=== PATIENT | male | born 1935 | race Caucasian/White ===

== ENCOUNTER 2023-05-09 16:07 | Observation (INO) | payer MEDICARE ==
[2023-05-09 20:40] VITALS: BMI 28.7
[2023-05-09] MEDS ORDERED: Ondansetron ODT 4 MG TAB PO PRN (23:35)
[2023-05-09] MEDS ORDERED: Acetaminophen 325 MG TAB PO PRN (23:35)
[2023-05-09] MEDS ORDERED: Ondansetron PF 4 MG/2 ML Vial IVP PRN (23:35)
[2023-05-09] MEDS ORDERED: ALPRAZolam 0.5 MG TAB PO ONE (23:37)
[2023-05-09] MEDS ORDERED: ALPRAZolam 0.25 MG TAB PO PRN (23:43)
[2023-05-09] MEDS ORDERED: Aspirin 325 MG TAB PO SCH (23:45)
[2023-05-10 04:58] LABS: #Eosinphils 0.2 thou/uL (0.0-0.7); #Monocytes 0.7 thou/uL (0.11-0.59); #Neutrophils 3.8 thou/uL (1.40-6.50); %Basophils 0.6 % (0.0-1.0); %Lymphocytes 23.9 % (21.0-51.0); %Monocytes 11.5 % (0.0-10.0); %Neutrophils 60.5 % (42.0-75.0); Hematocrit 37.9 % (42.0-52.0); Hemoglobin 12.4 g/dL (14.0-18.0); Mean Corpuscular HGB CONC 32.7 g/dL (32.0-36.0); Mean Corpuscular Hemoglobin 29.2 pg (27.0-31.0); Mean Corpuscular Volume 89.2 fl (78.0-98.0); Mean Platelet Volume 10.5 fL (7.4-10.4); Platelet Count 173 10x3/uL (130-400); RBC Distribution Width 12.6 % (11.5-14.5); Red Blood Cell (RBC) Count 4.25 mill/uL (4.70-6.10); White Blood Cell (WBC) Count 6.3 10x3/uL (4.8-10.8)
[2023-05-10 05:17] LABS: Hemoglobin A1c 5.1 % (4.0-6.0)
[2023-05-10 05:20] LABS: Anion Gap 10 mmol/L (10-20); BUN (Urea Nitrogen) 16 mg/dL (8.4-25.7); Calc. Creatinine Clearance 61 mL/min (70-130); Calcium 8.5 mg/dL (7.8-10.44); Carbon Dioxide 29 mmol/L (23-31); Cardiac Risk 3.8 (Less than 4.5); Chloride 109 mmol/L (98-107); Cholesterol 147 mg/dl (< 200 Desired); Estimated GFR 63; Glucose 89 mg/dL (83-110); HDL Cholesterol 39 mg/dL (>60 Neg Risk); LDL Cholesterol, Calculated 92 mg/dL; Potassium 3.8 mmol/L (3.5-5.1); Sodium 144 mmol/L (136-145); Triglycerides 82 mg/dL (Less than 150)
[2023-05-10] MEDS ORDERED: Clopidogrel Bisulfate 300 MG TAB PO SCH (08:15)
[2023-05-10] MEDS ORDERED: Clopidogrel Bisulfate 75 MG TAB PO SCH (09:00)
[2023-05-10] MEDS ORDERED: busPIRone HCl 10 MG TAB PO SCH (09:00)
[2023-05-10] MEDS ORDERED: Aspirin 81 mg Enteric Coated Tablet PO SCH (09:00)
[2023-05-10] MEDS ORDERED: Iopamidol 370 76% 100 ML VIAL ONE (09:27)
[2023-05-10 16:33] VITALS: TEMP 97.4
[2023-05-10 16:57] VITALS: BP 146/62
[2023-05-11] MEDS ORDERED: Clopidogrel Bisulfate 75 MG TAB PO SCH (09:00)
[2023-05-13] MEDS ORDERED: FLU VACC QS2023(65UP)/MF59C/PF 60 MCG/0.5 ML SYRINGE IM ONE (09:00)
== END 2023-05-10 19:30 | disposition home or self-care (01) ==
LOC: 2SE 19:23
PROVIDERS: ADMIT Student in an Organized Health Care Education/Training Program; ATTEND Student in an Organized Health Care Education/Training Program
DX: G45.9 Transient cerebral ischemic attack, unspecified (principal); I10 Essential (primary) hypertension; I45.81 Long QT syndrome; J44.9 Chronic obstructive pulmonary disease, unspecified; K21.9 Gastro-esophageal reflux disease without esophagitis; I49.9 Cardiac arrhythmia, unspecified; I44.1 Atrioventricular block, second degree; F41.1 Generalized anxiety disorder; M54.50 Low back pain, unspecified; G89.29 Other chronic pain; G47.00 Insomnia, unspecified; E78.5 Hyperlipidemia, unspecified; Z79.82 Long term (current) use of aspirin; Z79.899 Other long term (current) drug therapy
CPT/HCPCS: 70496; 70498; 70551; 80048; 80061; 83036; 84443; 85025; 93005; 97116; G0378; 36415; 93010; Q9967